=== PATIENT | male | born 1975 | race African-American/Black ===

== ENCOUNTER 2017-02-16 11:08 | Emergency (ER) | payer OTHER ==
[2017-02-16 11:12] VITALS: BP 146/77; PULSE 70; TEMP 98.6; BMI 23.6
[2017-02-16] MEDS ORDERED: IBUPROFEN 600 MG TABLET (FP) PO ONE ×2 (11:43→11:48)
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
== END 2017-02-16 11:53 | disposition home or self-care (01) ==
LOC: JERFT 11:08
DX: S39.012A Strain of muscle, fascia and tendon of lower back, initial encounter (principal); V43.52XA Car driver injured in collision with other type car in traffic accident, initial encounter; Y93.89 Activity, other specified; Y92.410 Unspecified street and highway as the place of occurrence of the external cause
CPT/HCPCS: 99281-25